=== PATIENT | female | born 1990 | race American Indian/Alaskan Native ===

== ENCOUNTER 2019-01-06 06:38 | Outpatient (CLI) | payer MEDICAID ==
[2019-01-06 07:01] VITALS: BP 111/62
[2019-01-06] MEDS ORDERED: LACTATED RINGERS 1,000 ML IV ONE (07:45)
[2019-01-06 08:15] LABS: Bacteria,Urine 1+ /HPF (Negative); Bilirubin,Urine NEG (Negative); Blood,Urine NEG (Negative); Color,Urine Colorless (Yellow); Protein,Urine <15 mg/dL mg/dL (Negative); RBC,Urine < 1.0 /HPF (0.0-6.0); Urobilinogen,Urine < 2.0 mg/dL (<2.0)
[2019-01-06 08:21] LABS: Amphetamine Screen,Urine PRESUMPTIVE NEGATIVE; Benzodiazepines Screen,Urine PRESUMPTIVE NEGATIVE; Cannabinoid Screen,Urine PRESUMPTIVE NEGATIVE; Cocaine Screen,Urine PRESUMPTIVE NEGATIVE; Methadone Screen,Urine PRESUMPTIVE NEGATIVE; Opiate Screen,Urine PRESUMPTIVE NEGATIVE
[2019-01-06 08:22] LABS: WBC,Urine < 1.0 /HPF (0.0-6.0)
--- NOTE | 2019-01-06 09:54 | Ultrasound Report ---
OB ULTRASOUND >= 14 WEEKS FETUS INDICATION: assessment, premature rupture of membranes COMPARISON: None FINDINGS: A single gestation intrauterine is present with cephalic presentation. The placenta is ante rior, grade 1 and free of the cervical os. heart tones measure 141 bpm. Amniotic fluid volume is normal with a fluid index of 7.9. stomach, kidneys, bladder, diaphragm, four-chamber heart and three-vessel cord demonstrate no s onographic abnormality. Neural anatomy and spine could not be evaluated due to position. Biparietal diameter is 9.0 cm which equals 36 weeks 3 days. Head circumference is 33.6 cm which equals 38 weeks 4 days. Abdominal circumference is 32.1 cm which equals 36 weeks 0 days. Femur length is 7.4 cm which equals 37 weeks 5 days. Overall estimated sonographic age is 37 weeks 1 day. Clinical age: 37 weeks 0 days. HC/AC ratio: 1.05 Cephalic index: 75.9. Estimated weight 3028 g +/- 448 g. Estimated weight percentile: 50. IMPRESSION: Viable, single intrauterine as described above. No acute abnormality is detected. Signer Name: Lane Ly Jr, MD Signed: 01/06/2019 9:49 AM Workstation Name: [id number]
== END 2019-01-06 11:30 | disposition home or self-care (01) ==
LOC: TRG 06:38
PROVIDERS: ATTEND Obstetrics & Gynecology
DX: O62.8 Other abnormalities of forces of labor (principal); O13.3 Gestational [pregnancy-induced] hypertension without significant proteinuria, third trimester; Z3A.37 37 weeks gestation of pregnancy
CPT/HCPCS: 59025; 76805; 80307; 81001

== ENCOUNTER 2019-02-01 15:18 | Emergency (ER) | payer MEDICAID ==
--- NOTE | 2019-02-01 15:44 | Event Note ---
ED Screening Note ED Screening Note: PMHx preeclampsia 9 days post , vaginal delivery edema of the feet, hands, face since 01/26/19 gave lasix states it is not helping with edema right sided ANDRADE for three days taking ibuprofen without much relief having blurry vision, black dots floating around today states she was seen at [facility] yesterday This initial assessment/diagnostic orders/clinical plan/treatment(s) is/are subject to change based on patients health status, clinical progression and re-assessment by fellow clinical providers in the ED. Further treatment and workup at subsequent clinical providers discretion. Patient/guardian urged not to elope from the ED as their condition may be serious if not clinically assessed and managed. Initial orders include: labs, EKG, UA
[2019-02-01 16:13] LABS: Basophils # (Auto) 0.1 K/mm3 (0.0-0.1); Basophils % (Auto) 1.8 % (0.0-1.8); Eosinophils # (Auto) 0.1 K/mm3 (0.0-0.4); Eosinophils % (Auto) 2.2 % (0.0-4.3); Hematocrit 32.5 % (30.3-42.9); Lymphocytes # (Auto) 1.5 K/mm3 (1.2-5.4); Lymphocytes % (Auto) 27.1 % (13.4-35.0); Mean Corpuscular HGB Conc 34 % (30-34); Mean Corpuscular Volume 87 fl (79-97); Monocytes # (Auto) 0.3 K/mm3 (0.0-0.8); Monocytes % (Auto) 4.9 % (0.0-7.3); Platelet Count 214 K/mm3 (140-440); Red Blood Count 3.74 M/mm3 (3.65-5.03); Red Cell Distribution Width 14.7 % (13.2-15.2)
[2019-02-01 16:34] LABS: Alanine Aminotransferase 39 units/L (7-56); Albumin 3.7 g/dL (3.9-5); BUN/Creatinine Ratio 14; Blood Urea Nitrogen 13 mg/dL (7-17); Calcium 9.1 mg/dL (8.4-10.2); Hemolysis Index 5
[2019-02-01 16:56] LABS: Bilirubin,Urine NEG (Negative); Blood,Urine MOD (Negative); Color,Urine Yellow (Yellow); Protein,Urine <15 mg/dL mg/dL (Negative); Urobilinogen,Urine < 2.0 mg/dL (<2.0)
--- NOTE | 2019-02-01 17:41 | Emergency Department Report ---
ED General Adult HPI - General Chief complaint: Headache Stated complaint: HEADACHE/BLURD VISION/SOB/FACE/HAND SWOLLEN Time Seen by Provider: 02/01/19 15:42 Source: patient Mode of arrival: Ambulatory Limitations: No Limitations - History of Present Illness Initial comments: Patient presents to the emergency department with a chief complaint of bilateral leg swelling. The patient is 9 days status post vaginal delivery and is concerned about the swelling of her legs. Patient also complains of pain in her legs with walking. Patient's concerned about preeclampsia although she was not preeclamptic during her and normal blood pressures. Patient's blood pressure today in the emergency department is 110/63.Patient denies CP or SOB -: Gradual Consistency: constant Improves with: none Worsens with: none Associated Symptoms: denies other symptoms Treatments Prior to Arrival: none - Related Data Home Medications Medication Instructions Recorded Confirmed Last Taken Vit-Fe Fumar-FA [ 1 tab PO DAILY 01/06/19 01/06/19 01/05/19 Vitamin] Allergies Allergy/AdvReac Type Severity Reaction Status Date / Time divalproex sodium Allergy Swelling Verified 01/06/19 07:09 [From Depakote] ED Review of Systems ROS: Stated complaint: HEADACHE/BLURD VISION/SOB/FACE/HAND SWOLLEN Other details as noted in HPI Comment: All other systems reviewed and negative Constitutional: denies: chills, fever Eyes: denies: eye pain, eye discharge, vision change ENT: denies: ear pain, throat pain Respiratory: denies: cough, shortness of breath, wheezing Cardiovascular: denies: chest pain, palpitations Endocrine: no symptoms reported Gastrointestinal: denies: abdominal pain, nausea, diarrhea Genitourinary: denies: urgency, dysuria, discharge Musculoskeletal: denies: back pain, joint swelling, arthralgia Skin: denies: rash, lesions Neurological: denies: headache, weakness, paresthesias Psychiatric: denies: anxiety, depression Hematological/Lymphatic: denies: easy bleeding, easy bruising ED Past Medical Hx - Past Medical History Previous Medical History?: No Hx Hypertension: No Hx Diabetes: No Hx Deep Vein Thrombosis: No Hx Renal Disease: No Hx Sickle Cell Disease: No Hx Seizures: No Hx Asthma: No Hx HIV: No - Surgical History Past Surgical History?: Yes Hx Cholecystectomy: Yes - Social History Smoking Status: Never Smoker Substance Use Type: None - Medications Home Medications: Home Medications Medication Instructions Recorded Confirmed Last Taken Type Vit-Fe Fumar-FA [ 1 tab PO DAILY 01/06/19 01/06/19 01/05/19 History Vitamin] ED Physical Exam - General Limitations: No Limitations General appearance: alert, in no apparent distress - Head Head exam: Present: atraumatic, normocephalic - Eye Eye exam: Present: normal appearance, PERRL, EOMI - ENT ENT exam: Present: mucous membranes moist - Neck Neck exam: Present: normal inspection - Respiratory Respiratory exam: Present: normal lung sounds bilaterally. Absent: respiratory distress - Cardiovascular Cardiovascular Exam: Present: regular rate, normal rhythm. Absent: systolic murmur, diastolic murmur, rubs, gallop - GI/Abdominal GI/Abdominal exam: Present: soft, normal bowel sounds. Absent: distended, tend erness - Extremities Exam Extremities exam: Present: normal inspection, other (mild b/l edema of lower ext with ttp) - Back Exam Back exam: Present: normal inspection - Neurological Exam Neurological exam: Present: alert, oriented X3, CN II-XII intact, reflexes normal. Absent: motor sensory deficit - Psychiatric Psychiatric exam: Present: normal affect, normal mood - Skin Skin exam: Present: warm, dry, intact, normal color. Absent: rash ED Course Vital Signs 02/01/19 02/01/19 02/01/19 15:26 16:31 17:00 Temperature 98.2 F Pulse Rate 75 69 65 Respiratory 20 18 Rate Blood Pressure 143/83 121/60 110/83 [Left] O2 Sat by Pulse 100 98 Oximetry 02/01/19 02/01/19 02/01/19 18:02 19:24 20:07 Temperature 98.5 F Pulse Rate 72 67 72 Respiratory 17 16 Rate Blood Pressure 118/63 129/80 131/84 [Left] O2 Sat by Pulse 99 100 Oximetry ED Medical Decision Making - Lab Data Result diagrams: 02/01/19 16:02 02/01/19 16:02 Lab Results 02/01/19 02/01/19 02/01/19 Range/Units 16:02 16:02 16:02 WBC 5.5 (4.5-11.0) K/mm3 RBC 3.74 (3.65-5.03) M/mm3 Hgb 11.0 (10.1-14.3) gm/dl Hct 32.5 (30.3-42.9) % MCV 87 (79-97) fl MCH 29 (28-32) pg MCHC 34 (30-34) % RDW 14.7 (13.2-15.2) % Plt Count 214 (140-440) K/mm3 Lymph % (Auto) 27.1 (13.4-35.0) % Ble[place] % (Auto) 4.9 (0.0-7.3) % Eos % (Auto) 2.2 (0.0-4.3) % Baso % (Auto) 1.8 (0.0-1.8) % Lymph # 1.5 (1.2-5.4) K/mm3 Bleckley # 0.3 (0.0-0.8) K/mm3 Eos # 0.1 (0.0-0.4) K/mm3 Baso # 0.1 (0.0-0.1) K/mm3 Seg Neutrophils % 64.0 (40.0-70.0) % Seg Neutrophils # 3.5 (1.8-7.7) K/mm3 Sodium 138 (137-145) mmol/L Potassium 4.1 (3.6-5.0) mmol/L Chloride 102.9 (98-107) mmol/L Carbon Dioxide 25 (22-30) mmol/L Anion Gap 14 mmol/L BUN 13 (7-17) mg/dL Creatinine 0.9 (0.7-1.2) mg/dL Estimated GFR > 60 ml/min BUN/Creatinine Ratio 14 % Glucose 85 (65-100) mg/dL Calcium 9.1 (8.4-10.2) mg/dL Magnesium 2.30 (1.7-2.3) mg/dL Total Bilirubin < 0.20 (0.1-1.2) mg/dL AST 23 (5-40) units/L ALT 39 (7-56) units/L Alkaline Phosphatase 85 (35-129) units/L Total Creatine Kinase 111 (30-135) units/L NT-Pro-B Natriuret Pep 221.3 (0-450) pg/mL Total Protein 6.9 (6.3-8.2) g/dL Albumin 3.7 L (3.9-5) g/dL Albumin/Globulin Ratio 1.2 % Urine Color (Yellow) Urine Turbidity (Clear) Urine pH (5.0-7.0) Ur Specific [place] (1.003-1.030) Urine Protein (Negative) mg/dL Urine Glucose (UA) (Negative) mg/dL Urine Ketones (Negative) mg/dL Urine Blood (Negative) Urine Nitrite (Negative) Urine Bilirubin (Negative) Urine Urobilinogen (<2.0) mg/dL Ur Leukocyte Esterase (Negative) Urine WBC (Auto) (0.0-6.0) /HPF Urine RBC (Auto) (0.0-6.0) /HPF U Epithel Cells (Auto) (0-13.0) /HPF 02/01/19 02/01/19 Range/Units 16:02 16:40 WBC (4.5-11.0) K/mm3 RBC (3.65-5.03) M/mm3 Hgb (10.1-14.3) gm/dl Hct (30.3-42.9) % MCV (79-97) fl MCH (28-32) pg MCHC (30-34) % RDW (13.2-15.2) % Plt Count (140-440) K/mm3 Lymph % (Auto) (13.4-35.0) % [place] % (Auto) (0.0-7.3) % Eos % (Auto) (0.0-4.3) % Baso % (Auto) (0.0-1.8) % Lymph # (1.2-5.4) K/mm3 [place]ley # (0.0-0.8) K/mm3 Eos # (0.0-0.4) K/mm3 Baso # (0.0-0.1) K/mm3 Seg Neutrophils % (40.0-70.0) % Seg Neutrophils # (1.8-7.7) K/mm3 Sodium (137-145) mmol/L Potassium (3.6-5.0) mmol/L Chloride (98-107) mmol/L Carbon Dioxide (22-30) mmol/L Anion Gap mmol/L BUN (7-17) mg/dL Creatinine (0.7-1.2) mg/dL Estimated GFR ml/min BUN/Creatinine Ratio % Glucose (65-100) mg/dL Calcium (8.4-10.2) mg/dL Magnesium (1.7-2.3) mg/dL Total Bilirubin (0.1-1.2) mg/dL AST (5-40) units/L ALT (7-56) units/L Alkaline Phosphatase (35-129) units/L Total Creatine Kinase (30-135) units/L NT-Pro-B Natriuret Pep 235.2 (0-450) pg/mL Total Protein (6.3-8.2) g/dL Albumin (3.9-5) g/dL Albumin/Globulin Ratio % Urine Color Yellow (Yellow) Urine Turbidity Clear (Clear) Urine pH 5.0 (5.0-7.0) Ur Specific [place] 1.016 (1.003-1.030) Urine Protein <15 mg/dl (Negative) mg/dL Urine Glucose (UA) Neg (Negative) mg/dL Urine Ketones Neg (Negative) mg/dL Urine Blood Mod (Negative) Urine Nitrite Neg (Negative) Urine Bilirubin Neg (Negative) Urine Urobilinogen < 2.0 (<2.0) mg/dL Ur Leukocyte Esterase Neg (Negative) Urine WBC (Auto) 1.0 (0.0-6.0) /HPF Urine RBC (Auto) 23.0 (0.0-6.0) /HPF U Epithel Cells (Auto) < 1.0 (0-13.0) /HPF - Radiology Data Radiology results: report reviewed - Medical Decision Making Patient states during her she had no issues with glucose levels or with her blood pressure. Patient states her blood pressure was normally 110 systolically of 120 systolically. Today on exam when I was examining the patient blood pressure 110/63. Patient says she has a lower headache which is not uncommon for her. Headache was relieved with Fioricet. Patient instructed to follow with her OB. Critical care attestation.: If time is entered above; I have spent that time in minutes in the direct care of this critically ill patient, excluding procedure time. ED Disposition Clinical Impression: Swelling of lower extremity Disposition: DC-01 TO HOME OR SELFCARE Is pt being admited?: No Does the pt Need Aspirin: No Condition: Stable Instructions: Leg Edema (ED) Additional Instructions: return if worse Please follow up with her clinical systems analyst and designated broker Dr. Wyatt Referrals: [facility] [Other] - 3-5 Days Time of Disposition: 21:25
--- NOTE | 2019-02-01 18:31 | XRay Report ---
CHEST 1 VIEW 02/01/2019 5:50 PM INDICATION / CLINICAL INFORMATION: swelling. COMPARISON: None available. FINDINGS: SUPPORT DEVICES: None. HEART / MEDIASTINUM: No significant abnormality. LUNGS / PLEURA: No significant pulmonary or pleural abnormality. No pneumothorax. ADDITIONAL FINDINGS: No significant additional findings. IMPRESSION: 1. No acute findings. Signer Name: Kingston Villagran MD Signed: 02/01/2019 6:27 PM Workstation Name: [id number]
[2019-02-01 20:09] VITALS: BP 131/84
--- NOTE | 2019-02-01 20:19 | Cat Scan Report ---
CT head/brain wo con INDICATION: headache. TECHNIQUE: Routine CT head without contrast. Sagittal and coronal reformatted images were obtained. A ll CT scans at this location are performed using CT dose reduction for ALARA by means of automated ex posure control. COMPARISON: None. FINDINGS: BRAIN / INTRACRANIAL CONTENTS: No acute hemorrhage, mass effect, midline shift, hydrocephalus, or acu te, large territorial infarct. No chronic infarct or focal atrophy. Normal brain volume and ventricul ar/sulcal size for age. No significant white matter abnormality. CRANIOCERVICAL JUNCTION: No significant abnormality. ORBITS: No significant abnormality of visualized orbits. SINUSES / MASTOIDS: No significant abnormality of the visualized paranasal sinuses or mastoid air yosi ls. ADDITIONAL FINDINGS: None. IMPRESSION: Normal nonenhanced CT scan of the brain. Signer Name: Petty Hampton MD Signed: 02/01/2019 8:14 PM Workstation Name: [id number]
[2019-02-01] MEDS ORDERED: FIORICET PO ONE (20:33)
[2019-02-01] MEDS ORDERED: BENADRYL IV ONE (20:34)
[2019-02-01] MEDS ORDERED: REGLAN IV ONE (20:34)
--- NOTE | 2019-02-01 22:37 | Vascular Lab Report ---
DUPLEX DOPPLER LOWER EXTREMITY VEINS, BILATERAL INDICATION: swelling/pain s/p delivery. TECHNIQUE: Duplex doppler imaging was performed through the veins of both lower extremities using venous kay arsh and other maneuvers. COMPARISON: No relevant prior imaging study available. FINDINGS: Right Common femoral vein: Negative. Right Superficial femoral vein: Negative. Right Popliteal vein: Negative. Right Calf veins: Negative. Left Common femoral vein: Negative. Left Superficial femoral vein: Negative. Left Popliteal vein: Negative. Left Calf veins: Negative. Additional findings: None.. IMPRESSION: 1. No sonographic evidence for DVT in either lower extremity. Signer Name: Eric Hollins MD Signed: 02/01/2019 10:32 PM Workstation Name: [id number]
== END 2019-02-01 21:44 | disposition home or self-care (01) ==
LOC: ED 15:18
DX: O90.89 Other complications of the puerperium, not elsewhere classified (principal); M79.89 Other specified soft tissue disorders; Z98.890 Other specified postprocedural states; Z90.49 Acquired absence of other specified parts of digestive tract; Z79.899 Other long term (current) drug therapy; Z88.8 Allergy status to other drugs, medicaments and biological substances
CPT/HCPCS: 36415; 70450; 71045; 80053; 81001; 82550; 83735; 83880; 85025; 93005; 93010; 93970; 96374; 96375; 99285; J1200; J2765